=== PATIENT | male | born 1950 | race Caucasian/White ===

== ENCOUNTER 2020-09-03 10:33 | Emergency (ER) | payer MEDICARE ==
[2020-09-03] MEDS ORDERED: CLINDAMYCIN IVPB 600MG/50ML 50 ML IV ONE (12:15)
[2020-09-03] MEDS ORDERED: TETANUS/DIPHTHERIA TOXOID [ADULT] 0.5 ML VIAL IM ONE (12:44)
== END 2020-09-03 13:26 | disposition home or self-care (01) ==
LOC: EDH 10:33
DX: L03.011 Cellulitis of right finger (principal)
CPT/HCPCS: 10060; 73140; 87070; 87076; 87077; 87186; 90471; 90714; 96365; 99284; J3490